=== PATIENT | male | born 1935 | race Caucasian/White ===

== ENCOUNTER 2017-01-03 18:06 | Inpatient (IN) | payer MEDICARE, OTHER ==
[~2017-01-03] VITALS: Ht 175.3 cm; Wt 90.4 kg
[~2017-01-03 18:06] MED LIST: TAMS-11 PO
[2017-01-03] MEDS ORDERED: SODIUM CHLORIDE FLUSH 10ML SYR IVF ONE ×2 (18:30→19:00)
[2017-01-03 18:56] LABS: HEMATOCRIT 31.7 % (39.2-51.8); HEMOGLOBIN 10.9 g/dL (13.7-18.0); WHITE BLOOD COUNT 13.6 x10^3/uL (3.4-10)
[2017-01-03] MEDS ORDERED: SODIUM CHLORIDE 0.9% 1,000ML IVBOLUS ONE (19:00)
[2017-01-03] MEDS ORDERED: MORPHINE SULFATE 4 MG/ML, 1ML IVPush PRN (19:00)
[2017-01-03] MEDS ORDERED: ONDANSETRON 2MG/ML, 2ML IVPush ONE (19:00)
[2017-01-03 19:07] LABS: ASPARTATE AMINO TRANSFERASE 15 U/L (15-37); BLOOD UREA NITROGEN 19 mg/dL (7-18)
[2017-01-03 19:18] LABS: IS PT STATUS REG ER OR PRE ER? YES
[2017-01-03] MEDS ORDERED: morphine SULFATE 10 MG/ML, 1ML ONE (20:29)
[2017-01-03] MEDS ORDERED: ONDANSETRON 2MG/ML, 2ML ONE (20:29)
[2017-01-03 21:04] LABS: PATH.CAST-FLAG NOT PRESENT; SPERM-FLAG NOT PRESENT; SRC-FLAG NOT PRESENT; XTAL-FLAG NOT PRESENT; YLC-FLAG NOT PRESENT
[2017-01-03] MEDS ORDERED: OMNIPAQUE 350 MG/ML, 100ML BOTTLE ONE (21:08)
[2017-01-03] MEDS ORDERED: PROPOFOL 10 MG/ML, 20ML IVPush ONE (22:00)
[2017-01-03] MEDS ORDERED: PROPOFOL 10 MG/ML, 20ML ONE ×2 (22:13→23:49)
[2017-01-03] MEDS ORDERED: ADENOSINE 6 MG/2 ML ONE ×2 (23:37→23:44)
[2017-01-04] MEDS ORDERED: ACETAMINOPHEN 650 MG SUPP ONE (00:09)
[2017-01-04] MEDS ORDERED: ACETAMINOPHEN 650 MG SUPP PR ONE (00:30)
[2017-01-04] MEDS ORDERED: ADENOSINE 6 MG/2 ML IVPush ONE ×4 (00:30)
[2017-01-04] MEDS ORDERED: PROPOFOL 10 MG/ML, 20ML IVPush ONE ×2 (01:30)
[2017-01-04] MEDS ORDERED: DIGOXIN 0.25 MG/ML, 2ML IVPush ONE (03:00)
[2017-01-04] MEDS ORDERED: ONDANSETRON 2MG/ML, 2ML IVPush PRN (03:00)
[2017-01-04] MEDS ORDERED: ACETAMINOPHEN 500 MG TABLET PO PRN (03:00)
[2017-01-04] MEDS ORDERED: SODIUM CHLORIDE 0.9% 1,000ML IVBOLUS ONE (03:30)
[2017-01-04] MEDS ORDERED: PHENYLEPHRINE IV ONE (03:30)
[2017-01-04] MEDS ORDERED: DIGOXIN 0.25 MG/ML, 2ML ONE (03:54)
[2017-01-04] MEDS: SODIUM CHLORIDE 0.9% 1,000 ML IV SCH ×3 (04:26→23:37)
[2017-01-04] MEDS ORDERED: SODIUM CHLORIDE 0.9% 1,000 ML IV ONE (04:40)
[2017-01-04 06:14] LABS: BLOOD UREA NITROGEN 18 mg/dL (7-18)
[2017-01-04 06:19] LABS: ASPARTATE AMINO TRANSFERASE 31 U/L (15-37)
[2017-01-04] MEDS: DIGOXIN 0.25 MG/ML, 2ML IVPush SCH (08:27)
[2017-01-04] MEDS: TAMSULOSIN 0.4 MG CAP.ER.24H PO SCH ×2 (09:00→14:48)
[2017-01-04] MEDS: POLYETHYLENE GLYCOL 17 GM PACKET PO SCH (09:00)
[2017-01-04] MEDS ORDERED: MAGNESIUM SULFATE PMX 4GM/100M 100 ML IV ONE (14:30)
[2017-01-04] MEDS ORDERED: SODIUM PHOSPHATE 20 MMOL in SODIUM CHLORIDE 0.9% 500 ML IV ONE (14:30)
[2017-01-04] MEDS: ENOXAPARIN 40 MG/0.4 ML SQ SCH (14:49)
[2017-01-05 04:00] VITALS: BP 108/50
[2017-01-05 04:46] LABS: HEMATOCRIT 24.3 % (39.2-51.8); HEMOGLOBIN 8.1 g/dL (13.7-18.0)
[2017-01-05 04:51] LABS: BLOOD UREA NITROGEN 17 mg/dL (7-18)
[2017-01-05] MEDS ORDERED: SODIUM PHOSPHATE 20 MMOL in SODIUM CHLORIDE 0.9% 500 ML IV ONE (07:00)
[2017-01-05] MEDS: TAMSULOSIN 0.4 MG CAP.ER.24H PO SCH (08:18)
[2017-01-05] MEDS: DIGOXIN 0.25 MG/ML, 2ML IVPush SCH (08:22)
[2017-01-05] MEDS: SODIUM CHLORIDE 0.9% 1,000 ML IV SCH ×2 (08:49→20:12)
[2017-01-05 08:54] LABS: FERRITIN 39.2 ng/mL (26-388)
[2017-01-05] MEDS: POLYETHYLENE GLYCOL 17 GM PACKET PO SCH (09:00)
[2017-01-05] MEDS: ENOXAPARIN 40 MG/0.4 ML SQ SCH (14:18)
[2017-01-05 15:07] VITALS: BP 141/72
[2017-01-05 17:39] VITALS: BP 127/69
[2017-01-05 18:18] LABS: IS PT STATUS REG ER OR PRE ER? NO
[2017-01-05 18:58] VITALS: BP 138/70
[2017-01-05 22:51] LABS: IS PT STATUS REG ER OR PRE ER? NO
[2017-01-05] MEDS ORDERED: HEPARIN 5,000 UNITS/ML, 1ML IV ONE (23:45)
[2017-01-05] MEDS ORDERED: HEPARIN 25,000 UNITS/500ML PMX 500 ML ONE (23:45)
[2017-01-05] MEDS ORDERED: HEPARIN 5,000 UNITS/ML, 1ML ONE (23:49)
[2017-01-06] MEDS ORDERED: HEPARIN 25,000 UNITS/500ML PMX 500 ML IV PRN
[2017-01-06] MEDS: HEPARIN 25,000 UNITS/500ML PMX 500 ML IV PRN (00:01)
[2017-01-06 01:12] VITALS: BP 146/73
[2017-01-06] MEDS: SODIUM CHLORIDE 0.9% 1,000 ML IV SCH (05:50)
[2017-01-06 06:14] LABS: ASPARTATE AMINO TRANSFERASE 58 U/L (15-37); BLOOD UREA NITROGEN 10 mg/dL (7-18)
[2017-01-06 06:17] LABS: IS PT STATUS REG ER OR PRE ER? NO
[2017-01-06 06:19] LABS: HEMATOCRIT 25.6 % (39.2-51.8); HEMOGLOBIN 8.6 g/dL (13.7-18.0); WHITE BLOOD COUNT 7.1 x10^3/uL (3.4-10)
[2017-01-06 07:21] VITALS: BP 151/67
[2017-01-06] MEDS: TAMSULOSIN 0.4 MG CAP.ER.24H PO SCH (08:19)
[2017-01-06] MEDS: POLYETHYLENE GLYCOL 17 GM PACKET PO SCH (08:19)
[2017-01-06] MEDS: DIGOXIN 0.25 MG/ML, 2ML IVPush SCH (08:44)
[2017-01-06] MEDS ORDERED: POTASSIUM CHLORIDE 20 MEQ TAB.ER.PRT PO ONE (11:00)
[2017-01-06 11:57] LABS: IS PT STATUS REG ER OR PRE ER? NO
[2017-01-06] MEDS ORDERED: SODIUM PHOSPHATE IV ONE (12:00)
[2017-01-06] MEDS ORDERED: DEXTROSE 5% IV ONE (12:00)
[2017-01-06] MEDS ORDERED: HEPARIN 1,000 UNITS/ML, 10ML ONE (15:48)
[2017-01-06] MEDS ORDERED: FENTANYL PF 100 MCG/2ML ONE (15:48)
[2017-01-06] MEDS ORDERED: MIDAZOLAM 1 MG/ML, 5ML ONE (15:48)
[2017-01-06] MEDS ORDERED: LIDOCAINE 2%, 20ML ONE (15:48)
[2017-01-06] MEDS ORDERED: VERAPAMIL 2.5 MG/ML, 2ML ONE (16:17)
[2017-01-06 17:24] VITALS: BP 159/73
[2017-01-06] MEDS ORDERED: POTASSIUM CHLORIDE 20 MEQ TAB.ER.PRT ONE (17:36)
[2017-01-06] MEDS: CEFTRIAXONE PMX 1GM/50ML 50 ML IV SCH (17:46)
[2017-01-06] MEDS: HEPARIN 5,000 UNITS/ML, 1ML IV PRN (18:27)
[2017-01-06 18:58] VITALS: BP 142/74
[2017-01-07] MEDS: SODIUM CHLORIDE 0.9% 1,000 ML IV SCH ×2 (00:20→11:00)
[2017-01-07] MEDS: HEPARIN 25,000 UNITS/500ML PMX 500 ML IV PRN (00:20)
[2017-01-07] MEDS: HEPARIN 5,000 UNITS/ML, 1ML IV PRN ×2 (01:43→08:49)
[2017-01-07 02:55] VITALS: BP 145/70
[2017-01-07 06:36] VITALS: BP 151/70
[2017-01-07] MEDS: TAMSULOSIN 0.4 MG CAP.ER.24H PO SCH (07:43)
[2017-01-07] MEDS: DIGOXIN 0.25 MG/ML, 2ML IVPush SCH (07:43)
[2017-01-07] MEDS: POLYETHYLENE GLYCOL 17 GM PACKET PO SCH (07:43)
[2017-01-07 13:05] VITALS: BP 146/64
[2017-01-07] MEDS: IRON SUCROSE COMPLEX 100MG/5ML IV SCH (13:28)
[2017-01-07 16:01] LABS: OCCBLD OBC PASS
[2017-01-07] MEDS: CEFTRIAXONE PMX 1GM/50ML 50 ML IV SCH (16:47)
[2017-01-07 18:45] VITALS: BP 130/64
[2017-01-08 01:00] VITALS: BP 130/73
[2017-01-08 06:38] VITALS: BP 152/65
[2017-01-08] MEDS: POLYETHYLENE GLYCOL 17 GM PACKET PO SCH (09:32)
[2017-01-08] MEDS: TAMSULOSIN 0.4 MG CAP.ER.24H PO SCH (09:32)
[2017-01-08 10:08] LABS: HEMATOCRIT 26.6 % (39.2-51.8); HEMOGLOBIN 9.1 g/dL (13.7-18.0); WHITE BLOOD COUNT 5.6 x10^3/uL (3.4-10)
[2017-01-08 10:16] LABS: BLOOD UREA NITROGEN 6 mg/dL (7-18)
[2017-01-08] MEDS: IRON SUCROSE COMPLEX 100MG/5ML IV SCH (12:51)
[2017-01-08 15:05] VITALS: BP 133/74
[2017-01-08] MEDS ORDERED: DIPHENHYDRAMINE 25 MG CAPSULE PO PRN (15:30)
[2017-01-08] MEDS: CEFTRIAXONE PMX 1GM/50ML 50 ML IV SCH (16:45)
[2017-01-08 19:08] VITALS: BP 127/62
[2017-01-09 01:53] VITALS: BP 126/73
[2017-01-09 07:49] VITALS: BP 137/73
[2017-01-09] MEDS: TAMSULOSIN 0.4 MG CAP.ER.24H PO SCH (08:40)
[2017-01-09] MEDS: POLYETHYLENE GLYCOL 17 GM PACKET PO SCH (08:40)
[2017-01-09] MEDS: ASPIRIN 81 MG TABLET EC PO SCH ×2 (09:30→10:15)
[2017-01-09] MEDS: IRON SUCROSE COMPLEX 100MG/5ML IV SCH (12:06)
[2017-01-09 12:47] VITALS: BP 139/68
[2017-01-09] MEDS: CEFTRIAXONE PMX 1GM/50ML 50 ML IV SCH (16:47)
[2017-01-09 20:23] VITALS: BP 135/73
[2017-01-09] MEDS ORDERED: ATORVASTATIN 20 MG TABLET PO SCH ×2 (21:00)
[2017-01-10 01:13] VITALS: BP 125/68
[2017-01-10] MEDS: ASPIRIN 81 MG TABLET EC PO SCH ×2 (06:05→07:18)
[2017-01-10 06:50] VITALS: BP 152/73
[2017-01-10] MEDS: TAMSULOSIN 0.4 MG CAP.ER.24H PO SCH (07:18)
[2017-01-10] MEDS: POLYETHYLENE GLYCOL 17 GM PACKET PO SCH (07:18)
[2017-01-10 12:20] VITALS: BP 143/76
[2017-01-10] MEDS ORDERED: ATOR20TA9 PO (15:54)
[2017-01-10] MEDS ORDERED: ASPI-621 PO (15:54)
[2017-01-10] MEDS ORDERED: POLY17PO5 PO (15:54)
[2017-01-10] MEDS ORDERED: FERR324T8 PO (15:58)
[2017-01-10] MEDS: CEFTRIAXONE PMX 1GM/50ML 50 ML IV SCH (16:59)
== END 2017-01-10 18:34 | disposition home or self-care (01) | DRG 871 ==
LOC: ED 23:45 → EDIP 23:50 → ED 01-04 00:12 → CCU 01-04 10:45 → 5SO 01-05 15:02
PROVIDERS: ADMIT Hospitalist; ATTEND Family Medicine
PROC: 5A2204Z Restoration of Cardiac Rhythm, Single (ICD-10-PCS; 2017-01-03)
PROC: 4A09XMZ Measurement of Respiratory Total Activity, External Approach (ICD-10-PCS; 2017-01-03)
PROC: 4A023N8 Measurement of Cardiac Sampling and Pressure, Bilateral, Percutaneous Approach (ICD-10-PCS; principal; 2017-01-06)
PROC: B2111ZZ Fluoroscopy of Multiple Coronary Arteries using Low Osmolar Contrast (ICD-10-PCS; 2017-01-06)
PROC: B2151ZZ Fluoroscopy of Left Heart using Low Osmolar Contrast (ICD-10-PCS; 2017-01-06)
DX: A41.9 Sepsis, unspecified organism (principal); I50.43 Acute on chronic combined systolic (congestive) and diastolic (congestive) heart failure; I21.4 Non-ST elevation (NSTEMI) myocardial infarction; I47.1 Supraventricular tachycardia; I48.91 Unspecified atrial fibrillation; I34.0 Nonrheumatic mitral (valve) insufficiency; D50.9 Iron deficiency anemia, unspecified; K56.41 Fecal impaction; K40.90 Unilateral inguinal hernia, without obstruction or gangrene, not specified as recurrent; E78.5 Hyperlipidemia, unspecified; I25.10 Atherosclerotic heart disease of native coronary artery without angina pectoris; I25.82 Chronic total occlusion of coronary artery; I35.0 Nonrheumatic aortic (valve) stenosis; I44.1 Atrioventricular block, second degree; I70.0 Atherosclerosis of aorta; K64.4 Residual hemorrhoidal skin tags; N40.1 Benign prostatic hyperplasia with lower urinary tract symptoms; R33.8 Other retention of urine; Z79.82 Long term (current) use of aspirin; Z79.899 Other long term (current) drug therapy; Z87.891 Personal history of nicotine dependence; Z95.2 Presence of prosthetic heart valve
CPT/HCPCS: 36415; 71010; 74000; 74177; 80048; 80053; 80061; 80162; 81001; 82272; 82607; 82728; 82746; 83540; 83550; 83690; 83735; 83880; 84100; 84436; 84443; 84484; 85025; 85520; 85610; 85730; 86850; 86900; 87040; 87076; 87081; 93005; 93306; 93460; 93880; 94010; 96361; 96374; 96375; 96376; C1769; C1894; J0153; J0696; J1644; J1650; J1756; J2250; J2405; J2704; J3010; J3490; Q9967; J1160; J2370; J3475; J7030; J7040; J7060; Q0163

== ENCOUNTER → 2017-03-03 | Outpatient (CLI) | payer MEDICARE, OTHER ==
[~2017-03-03] MED LIST changes: +ASPI-621 PO; +ATOR20TA9 PO; +FERR324T8 PO; +POLY17PO5 PO
== END | disposition home or self-care (01) ==
LOC: CVU 15:08
PROVIDERS: ATTEND Internal Medicine Cardiovascular Disease
DX: R23.3 Spontaneous ecchymoses (principal); I10 Essential (primary) hypertension; D64.9 Anemia, unspecified; I48.91 Unspecified atrial fibrillation; Z95.2 Presence of prosthetic heart valve
CPT/HCPCS: 93922

== ENCOUNTER → 2017-03-14 | Outpatient (CLI) | payer MEDICARE, OTHER | END | disposition home or self-care (01) | LOC: CVU 13:10 | PROVIDERS: ATTEND Internal Medicine Cardiovascular Disease | DX: I08.0 Rheumatic disorders of both mitral and aortic valves (principal); I25.2 Old myocardial infarction; J98.4 Other disorders of lung; Z95.2 Presence of prosthetic heart valve | CPT/HCPCS: 93306 ==

== ENCOUNTER 2017-06-08 12:44 | Emergency (ER) | payer MEDICARE, OTHER ==
[~2017-06-08] VITALS: Ht 175.3 cm; Wt 75.9 kg
[2017-06-08] MEDS ORDERED: SODIUM CHLORIDE FLUSH 10ML SYR IVF ONE (13:30)
[2017-06-08 13:58] LABS: BASOPHILS # (AUTO) 0.03 x10^3/uL (0-0.1); BASOPHILS % (AUTO) 1 % (0-1); EOSINOPHILS # (AUTO) 0.11 x10^3/uL (0-0.4); EOSINOPHILS % (AUTO) 2 % (1-7); LYMPHOCYTES # (AUTO) 1.38 x10^3/uL (1-3.4); LYMPHOCYTES % (AUTO) 24 % (22-44); MD NO; MEAN CORPUSCULAR HEMOGLOBIN 33.4 pg (27.5-34.5); MEAN CORPUSCULAR VOLUME 98.3 fL (81-97); MEAN PLATELET VOLUME 8.3 fL (7.4-10.4); MONOCYTES # (AUTO) 0.37 x10^3/uL (0.2-0.8); MONOCYTES % (AUTO) 6 % (2-9); NEUTROPHILS # (AUTO) 3.82 x10^3/uL (1.8-6.8); NEUTROPHILS % (AUTO) 67 % (42-75); PLATELET COUNT 199 x10^3/uL (130-400); RED BLOOD COUNT 3.87 x10^6/uL (4.38-5.82); RED CELL DISTRIBUTION WIDTH 15.1 % (9.4-14.8)
[2017-06-08 14:04] LABS: INTERNATIONAL NORMALIZED RATIO 1.13 (0.93-1.1); PROTHROMBIN TIME 11.6 Seconds (9.6-11.5)
[2017-06-08 14:16] LABS: ALBUMIN 3.9 g/dL (3.4-5.0); ANION GAP 9 mmol/L (5-15); CALCIUM 8.9 mg/dL (8.5-10.1); CHLORIDE 108 mmol/L (98-107)
[2017-06-08 14:21] LABS: ALANINE AMINOTRANSFERASE 28 U/L (12-78); ALKALINE PHOSPHATASE 65 U/L (45-117); BILIRUBIN,TOTAL 0.6 mg/dL (0.2-1.0); TROPONIN I < 0.015 ng/mL (0.000-0.045)
[2017-06-08] MEDS ORDERED: WHEA1POW8 PO (15:00)
[2017-06-08] MEDS ORDERED: CA C1TAB60 PO (15:00)
[2017-06-08] MEDS ORDERED: IRON50VI PO (15:00)
[2017-06-08] MEDS ORDERED: DUTA0.5C PO (15:00)
[2017-06-08] MEDS ORDERED: APIX5TAB PO (15:00)
[2017-06-08] MEDS ORDERED: FURO20TA3 PO (15:00)
[2017-06-08] MEDS ORDERED: POLY17PO5 PO (15:00)
[2017-06-08 17:13] VITALS: BP 135/69
== END 2017-06-08 17:37 | disposition home or self-care (01) ==
LOC: ED 17:09
DX: R07.89 Other chest pain (principal); I48.91 Unspecified atrial fibrillation; M81.0 Age-related osteoporosis without current pathological fracture
CPT/HCPCS: 36415; 71045; 80053; 83735; 83880; 84484; 85025; 85610; 85730; 93005; 99285

== ENCOUNTER 2018-03-11 14:50 | Emergency (ER) | payer MEDICARE, OTHER ==
[~2018-03-11] VITALS: Ht 170.2 cm; Wt 80.7 kg
[~2018-03-11 14:50] MED LIST changes: +APIX5TAB PO; -ASPI-621 PO; +ASPI81TA45 PO; +ATOR20TA37 PO; -ATOR20TA9 PO; +CA C1TAB60 PO; +DUTA0.5C PO; +FURO20TA3 PO; +IRON50VI PO; +WHEA1POW8 PO
[2018-03-11 15:17] VITALS: BP 141/93
--- NOTE | 2018-03-11 15:20 | NUR ---
Pt presents for epistaxis x3 yesterday anf this AM. Pt on eliquis. Pt also noted that he was hypertensive last night and this AM with diaphoresis. Pt denies CP. Paced on monitor at this time. NAD.
[2018-03-11] MEDS ORDERED: OXYMETAZOLINE NASAL SPRAY 0.05%, 15ML NAS ONE (16:00)
== END 2018-03-11 16:04 | disposition home or self-care (01) ==
LOC: ED 15:35
DX: R04.0 Epistaxis (principal); I10 Essential (primary) hypertension; I48.91 Unspecified atrial fibrillation
CPT/HCPCS: 99282

== ENCOUNTER 2018-03-20 21:07 | Emergency (ER) | payer MEDICARE, OTHER ==
[~2018-03-20] VITALS: Ht 170.2 cm; Wt 79.4 kg
--- NOTE | 2018-03-20 21:32 | NUR ---
PT PRESENTED WITH DAUGHTER WHO STATES PT'S LEFT ARM VEINS MORE PROMINENT, RECENT HIGH BLOOD PRESSURE. PT RESTING ON GURNEY, CALL LIGHT WITHIN REACH. PA AT BEDSIDE FOR EVAL
--- NOTE | 2018-03-20 21:41 | NUR ---
HUMID SYSTEM OPERATOR AT BEDSIDE FOR EKG, HULL SORTER TO DRAW LABS. PROVIDED PT WITH WARM BLANKET, MONITORS APPLIED, CALL LIGHT WITHIN REACH. AWAITING XRAY AND ULTRASOUND
[2018-03-20 21:56] LABS: BASOPHILS # (AUTO) 0.06 x10^3/uL (0-0.1); BASOPHILS % (AUTO) 1 % (0-1); EOSINOPHILS # (AUTO) 0.17 x10^3/uL (0-0.4); EOSINOPHILS % (AUTO) 3 % (1-7); LYMPHOCYTES # (AUTO) 1.79 x10^3/uL (1-3.4); LYMPHOCYTES % (AUTO) 32 % (22-44); MD NO; MEAN CORPUSCULAR HEMOGLOBIN 33.3 pg (27.5-34.5); MEAN CORPUSCULAR HGB CONC 34.1 g/dL (33.2-36.2); MEAN CORPUSCULAR VOLUME 97.7 fL (81-97); MEAN PLATELET VOLUME 8.5 fL (7.4-10.4); MONOCYTES # (AUTO) 0.39 x10^3/uL (0.2-0.8); MONOCYTES % (AUTO) 7 % (2-9); NEUTROPHILS # (AUTO) 3.22 x10^3/uL (1.8-6.8); NEUTROPHILS % (AUTO) 57 % (42-75); PLATELET COUNT 209 x10^3/uL (130-400); RED BLOOD COUNT 3.77 x10^6/uL (4.38-5.82); RED CELL DISTRIBUTION WIDTH 14.7 % (9.4-14.8)
--- NOTE | 2018-03-20 22:01 | NUR ---
PT TO ULTRASOUND
[2018-03-20 22:04] LABS: ALBUMIN 3.9 g/dL (3.4-5.0); ANION GAP 9 mmol/L (5-15); CALCIUM 9.1 mg/dL (8.5-10.1); CHLORIDE 109 mmol/L (98-107); CREATININE 1.06 mg/dL (0.7-1.3)
[2018-03-20 23:00] VITALS: BP 125/58
== END 2018-03-20 23:15 | disposition home or self-care (01) ==
LOC: ED 23:05
DX: I87.2 Venous insufficiency (chronic) (peripheral) (principal); R04.0 Epistaxis; I48.91 Unspecified atrial fibrillation; I10 Essential (primary) hypertension
CPT/HCPCS: 36415; 71045; 80048; 82040; 85025; 93005; 99284

== ENCOUNTER → 2018-04-05 | Outpatient (CLI) | payer MEDICARE, OTHER | END | disposition home or self-care (01) | LOC: CFH 12:36 | PROVIDERS: ATTEND Family Medicine | DX: I08.2 Rheumatic disorders of both aortic and tricuspid valves (principal); E78.5 Hyperlipidemia, unspecified; I25.2 Old myocardial infarction; Z87.891 Personal history of nicotine dependence | CPT/HCPCS: 93306 ==

== ENCOUNTER 2018-09-17 13:01 | Outpatient (CLI) | payer MEDICARE, OTHER | END 2018-09-17 23:59 | disposition home or self-care (01) | LOC: CFH 13:01 | PROVIDERS: ATTEND Family Medicine | DX: R05 Cough (principal) | CPT/HCPCS: 71046 ==

== ENCOUNTER 2019-03-05 13:36 | Emergency (ER) | payer MEDICARE, OTHER ==
[~2019-03-05] VITALS: Ht 172.7 cm; Wt 80.0 kg
[2019-03-05 14:03] VITALS: BP 126/69
[2019-03-05] MEDS ORDERED: SODIUM CHLORIDE FLUSH 10ML SYR IVF ONE (14:30)
--- NOTE | 2019-03-05 14:36 | NUR ---
PT TO ROOM AT THIS TIME
[2019-03-05 14:37] LABS: ALANINE AMINOTRANSFERASE 27 U/L (12-78); ALBUMIN 3.8 g/dL (3.4-5.0); ANION GAP 7 mmol/L (5-15); BASOPHILS # (AUTO) 0.07 x10^3/uL (0-0.1); BASOPHILS % (AUTO) 2 % (0-1); CALCIUM 8.7 mg/dL (8.5-10.1); CHLORIDE 105 mmol/L (98-107); EOSINOPHILS # (AUTO) 0.13 x10^3/uL (0-0.4); EOSINOPHILS % (AUTO) 3 % (1-7); LYMPHOCYTES # (AUTO) 1.25 x10^3/uL (1-3.4); LYMPHOCYTES % (AUTO) 27 % (22-44); MD NO; MEAN CORPUSCULAR HEMOGLOBIN 33.2 pg (27.5-34.5); MEAN CORPUSCULAR HGB CONC 33.5 g/dL (33.2-36.2); MEAN CORPUSCULAR VOLUME 99.3 fL (81-97); MEAN PLATELET VOLUME 8.5 fL (7.4-10.4); MONOCYTES # (AUTO) 0.29 x10^3/uL (0.2-0.8); MONOCYTES % (AUTO) 6 % (2-9); NEUTROPHILS # (AUTO) 2.82 x10^3/uL (1.8-6.8); NEUTROPHILS % (AUTO) 62 % (42-75); PLATELET COUNT 212 x10^3/uL (130-400); RED BLOOD COUNT 3.78 x10^6/uL (4.38-5.82); RED CELL DISTRIBUTION WIDTH 15.4 % (9.4-14.8)
[2019-03-05 14:40] LABS: ALKALINE PHOSPHATASE 66 U/L (45-117); BILIRUBIN,TOTAL 0.4 mg/dL (0.2-1.0); CREATININE 1.01 mg/dL (0.7-1.3); TOTAL PROTEIN 7.9 g/dL (6.4-8.2)
[2019-03-05 14:57] LABS: INTERNATIONAL NORMALIZED RATIO 2.44 (0.93-1.1); PROTHROMBIN TIME 26.1 Seconds (9.6-11.5)
--- NOTE | 2019-03-05 15:14 | NUR ---
PT IN BED, DAUGHTER AT BEDSIDE. ERP AT BEDSIDE FOR RECTAL EXAM. PT PROVIDED WITH WARM BLANKETS AND WATER PER REQUEST. DENIES ANY FURTHER NEEDS OR CONCERNS AT THIS TIME. CALL LIGHT IN REACH.
== END 2019-03-05 16:45 | disposition home or self-care (01) ==
LOC: ED 16:14
DX: K64.4 Residual hemorrhoidal skin tags (principal); I48.91 Unspecified atrial fibrillation; I10 Essential (primary) hypertension; Z87.891 Personal history of nicotine dependence; Z87.01 Personal history of pneumonia (recurrent)
CPT/HCPCS: 36415; 80053; 85025; 85610; 99283

== ENCOUNTER 2019-08-18 16:06 | Emergency (ER) | payer MEDICARE, OTHER ==
[~2019-08-18] VITALS: Ht 172.7 cm; Wt 79.1 kg
[2019-08-18 16:49] LABS: INTERNATIONAL NORMALIZED RATIO 2.45 (0.93-1.1); PROTHROMBIN TIME 26.2 Seconds (9.6-11.5)
--- NOTE | 2019-08-18 17:28 | NUR ---
WELL FLOW OPERATOR: PT AMBULATORY TO ROOM FROM LOBBY
[2019-08-18] MEDS ORDERED: ROSU5TAB12 PO (17:40)
[2019-08-18] MEDS ORDERED: FERR-51 PO (17:40)
[2019-08-18] MEDS ORDERED: LISI2.5T PO (17:40)
[2019-08-18] MEDS ORDERED: POTA10TA6 PO (17:40)
--- NOTE | 2019-08-18 17:44 | NUR ---
HERE FOR REDNESS TO LT CONJUNCTIVA. STARTED MONDAY. DENIES TRAUMA. ADMITS TO DOING A LOT OF READING (COMPUTER & PAPER) AND TV. WEARS NON-PRESCRIPTION READING GLASSES. NO DROPS INSTILLED, NO PAIN MEDS TAKEN. DAUGHTER IN ROOM ASSISTING W/ HX.
[2019-08-18] MEDS ORDERED: WARF5TAB2 PO (17:47)
--- NOTE | 2019-08-18 18:05 | NUR ---
PT DC'D PER [facility]ORE PRIOR TO [facility]
[2019-08-18 18:06] VITALS: BP 124/64
== END 2019-08-18 18:09 | disposition home or self-care (01) ==
LOC: ED 18:00
DX: H11.31 Conjunctival hemorrhage, right eye (principal); Z79.01 Long term (current) use of anticoagulants; I48.91 Unspecified atrial fibrillation; I10 Essential (primary) hypertension; Z95.0 Presence of cardiac pacemaker
CPT/HCPCS: 36415; 85610; 99283

== ENCOUNTER → 2020-05-20 | Outpatient (CLI) | payer MEDICARE, OTHER ==
[~2020-05-20] MED LIST changes: +FERR-51 PO; +LISI2.5T PO; +POTA10TA6 PO; +ROSU5TAB12 PO; +WARF5TAB2 PO
== END | disposition home or self-care (01) ==
LOC: CVU 15:27
PROVIDERS: ATTEND Student in an Organized Health Care Education/Training Program
DX: I08.8 Other rheumatic multiple valve diseases (principal); R06.02 Shortness of breath
CPT/HCPCS: 93306

== ENCOUNTER 2020-05-27 13:42 | Emergency (ER) | payer MEDICARE, OTHER ==
[~2020-05-27] VITALS: Ht 172.7 cm; Wt 80.4 kg
[2020-05-27 14:02] VITALS: BP 142/70
== END 2020-05-27 16:04 | disposition home or self-care (01) ==
LOC: ED 15:00
DX: B02.9 Zoster without complications (principal); I48.91 Unspecified atrial fibrillation; I10 Essential (primary) hypertension; Z95.0 Presence of cardiac pacemaker
CPT/HCPCS: 99283

== ENCOUNTER 2020-10-19 10:39 | Outpatient (CLI) | payer MEDICARE, OTHER ==
[~2020-10-19 10:39] MED LIST changes: -LISI2.5T PO; +LISI2.5T12 PO
[2020-10-19 11:14] LABS: INTERNATIONAL NORMALIZED RATIO 3.5 (0.93-1.1); PROTHROMBIN TIME 35.3 Seconds (9.6-11.5)
[2020-10-19 11:29] LABS: ALANINE AMINOTRANSFERASE 29 U/L (12-78); ANION GAP 6 mmol/L (5-15); BILIRUBIN,TOTAL 0.4 mg/dL (0.2-1.0); CALCIUM 8.8 mg/dL (8.5-10.1); CHLORIDE 106 mmol/L (98-107); CREATININE 0.95 mg/dL (0.7-1.3)
[2020-10-19 11:30] LABS: ALBUMIN 3.8 g/dL (3.4-5.0); ALKALINE PHOSPHATASE 66 U/L (45-117); CHOL/HDL RATIO 2.7; CHOLESTEROL, TOTAL 126 mg/dL (140-239); HDL CHOL % 37 % (26-37); HDL CHOLESTEROL (DIRECT) 47 mg/dL (40-60); LDL CHOLESTEROL,CALCULATED 60 mg/dL (54-169); LDL/HDL RATIO 1.3 (0.5-3.0); TOTAL PROTEIN 7.8 g/dL (6.4-8.2); TRIGLYCERIDES 96 mg/dL (50-200); VLDL CHOLESTEROL 19 mg/dL (0-25)
== END 2020-10-19 23:59 | disposition home or self-care (01) ==
LOC: LAB 10:39
PROVIDERS: ATTEND Internal Medicine Cardiovascular Disease
DX: N40.2 Nodular prostate without lower urinary tract symptoms (principal); E78.5 Hyperlipidemia, unspecified; E87.1 Hypo-osmolality and hyponatremia; Z79.01 Long term (current) use of anticoagulants; Z95.2 Presence of prosthetic heart valve
CPT/HCPCS: 36415; 80053; 80061; 84153; 85610; G0103

== ENCOUNTER 2020-10-27 14:41 | Outpatient (CLI) | payer MEDICARE, OTHER ==
[2020-10-27 15:52] LABS: INTERNATIONAL NORMALIZED RATIO 2.7 (0.93-1.1); PROTHROMBIN TIME 27.6 Seconds (9.6-11.5)
== END 2020-10-27 23:59 | disposition home or self-care (01) ==
LOC: LAB 14:41
PROVIDERS: ATTEND Internal Medicine Cardiovascular Disease
DX: Z79.01 Long term (current) use of anticoagulants (principal); Z95.2 Presence of prosthetic heart valve
CPT/HCPCS: 36415; 85610

== ENCOUNTER 2020-11-11 09:59 | Outpatient (CLI) | payer MEDICARE, OTHER | END 2020-11-11 23:59 | disposition home or self-care (01) | LOC: RAD 09:59 | PROVIDERS: ATTEND Internal Medicine Gastroenterology | DX: Z91.89 Other specified personal risk factors, not elsewhere classified (principal) | CPT/HCPCS: 36415; 74230; 85610 ==

== ENCOUNTER → 2020-11-11 | Outpatient (CLI) | payer MEDICARE, OTHER ==
[2020-11-11 12:08] LABS: INTERNATIONAL NORMALIZED RATIO 3.46 (0.93-1.1); PROTHROMBIN TIME 34.9 Seconds (9.6-11.5)
== END | disposition home or self-care (01) ==
LOC: LAB 11:29
PROVIDERS: ATTEND Internal Medicine Cardiovascular Disease
DX: Z79.01 Long term (current) use of anticoagulants (principal); Z95.2 Presence of prosthetic heart valve
CPT/HCPCS: 36415; 85610